=== PATIENT | female | born 1960 | race Caucasian/White ===

== ENCOUNTER 2017-01-25 14:35 | Emergency (ER) | payer BC, OTHER ==
[2017-01-25] MEDS ORDERED: Aspirin Low Dose CHEW TAB* 81 MG PO ONE (15:09)
--- NOTE | 2017-01-25 15:59 | RAD ---
Indication: Chest pain since 1300. Radiates to the RIGHT arm and shoulder blade. Comparison: No relevant prior exams available on the [facility] PACS for comparison. Technique: Upright AP 1520 hours Report: Minimal linear subsegmental atelectasis at the costophrenic angles. No consolidation concerning for pneumonia. Negative for focal pulmonary lesions. Negative for pleural effusion or pneumothorax. The heart, pulmonary vasculature, and mediastinal contours are unremarkable. Negative for free air beneath the diaphragm. IMPRESSION: No evidence for acute intrathoracic disease.
[2017-01-25 16:44] LABS: Hematocrit 47 % (35-47); Hemoglobin 15.8 g/dl (12.0-16.0); Mean Corpuscular HGB Conc 33 g/dl (31-36); Mean Corpuscular Hemoglobin 33 pg (27-31); Mean Corpuscular Volume 97 fL (80-97); Mean Platelet Volume 10 um3 (7.4-10.4); Red Blood Count 4.87 10^6/ul (4.0-5.4); Red Cell Distribution Width 14 % (10.5-15); White Blood Count 6.1 10^3/ul (3.5-10.8)
[2017-01-25 16:58] LABS: Albumin 4.1 g/dL (3.2-5.2); BUN/Creatinine Ratio 12.6 (8-20); EGFR African American 65.2 (>60); EGFR Non-African American 50.7 (>60); Globulin 3.1 g/dL (2-4); Total Bilirubin 0.4 mg/dL (0.2-1.0); Total Protein 7.2 g/dL (6.4-8.9)
[2017-01-25 19:27] LABS: Potassium 4.2 mmol/L (3.5-5.0)
[2017-01-25 20:29] VITALS: BP 103/67
--- NOTE | 2017-01-25 20:40 | ED ---
Deborah Brewer Seung-Jae, scribed for Leander Pierre MD on 01/25/17 at 1504 . HPI Chest Pain - HPI Summary HPI Summary: Pt is a 56 y/o F presenting to the ED with c/o CP. Pt states that approx 1 hour ago she had some tightness in her chest, and 20 minutes ago it became a "pain that radiates to the right arm". She characterizes the CP as an aching and sharp , stabbing pain. The Sx are aggravated with deep breathing and movement of chest , shoulder, and arm. Pt denies N/V. Pt notes chronic pedal edema in her ankles. - History of Current Complaint Chief Complaint: EDChestPainROMI Time Seen by Provider: 01/25/17 14:51 Hx Obtained From: Patient Onset/Duration: Started Hours Ago, Still Present Time of Onset: 14:00 Timing: Constant Initial Severity: Moderate Current Severity: Mild Pain Intensity: 3 Pain Scale Used: 0-10 Numeric Chest Pain Radiates: Yes Chest Pain Radiates To:: Arm - Right arm Character: Sharp/Stabbing, Other: - Aching Aggravating Factor(s): Movement - of shoulder, chest, and arm, Deep Breaths Alleviating Factor(s): Nothing Associated Signs and Symptoms: Positive: Palpitations - resolved. Negative: Nausea, Vomiting - Allergy/Home Medications Allergies/Adverse Reactions: Allergies Allergy/AdvReac Type Severity Reaction Status Date / Time No Known Allergies Allergy Verified 06/02/15 23:11 PMH/Surg Hx/FS Hx/Imm Hx Previously Healthy: Yes Musculoskeletal History: Denies: Hx Osteoporosis - Surgical History Surgery Procedure, Year, and Place: TONSILLECTOMY Infectious Disease History: Denies: Traveled Outside the [place] in Last 30 Days - Family History Known Family History: Positive: Cardiac Disease - Father at age 66 had MN, bypass graft - Social History Alcohol Use: Occasionally Alcohol Amount: WINE Substance Use Type: Reports: None Smoking Status (MU): Never Smoked Tobacco Review of Systems Positive: Palpitations - resolved, Chest Pain Negative: Vomiting, Nausea All Other Systems Reviewed And Are Negative: Yes Physical Exam Triage Information Reviewed: Yes Vital Signs On Initial Exam: Initial Vitals Temp Pulse Resp BP Pulse Ox 97.8 F 82 16 111/71 97 01/25/17 14:35 01/25/17 14:35 01/25/17 14:35 01/25/17 14:35 01/25/17 14:35 Vital Signs Reviewed: Yes Appearance: Positive: Well-Appearing, No Pain Distress Skin: Positive: Warm, Skin Color Reflects Adequate Perfusion, Dry Head/Face: Positive: Normal Head/Face Inspection Eyes: Positive: Normal ENT: Positive: Normal ENT inspection Neck: Positive: Supple, Nontender Respiratory/Lung Sounds: Positive: Clear to Auscultation, Breath Sounds Present Cardiovascular: Positive: RRR Abdomen Description: Positive: Nontender, Soft Bowel Sounds: Positive: Present Musculoskeletal: Positive: Edema Left - left ankle, Edema Right - right ankle Neurological: Positive: Normal Psychiatric: Positive: Normal Diagnostics - Vital Signs Vital Signs Temp Pulse Resp BP Pulse Ox 01/25/17 14:35 97.8 F 82 16 111/71 97 - Laboratory Lab Results: Lab Results 01/25/17 01/25/17 01/25/17 Range/Units 16:35 16:35 16:35 WBC 6.1 (3.5-10.8) 10^3/ul RBC 4.87 (4.0-5.4) 10^6/ul Hgb 15.8 (12.0-16.0) g/dl Hct 47 (35-47) % MCV 97 (80-97) fL MCH 33 H (27-31) pg MCHC 33 (31-36) g/dl RDW 14 (10.5-15) % Plt Count 269 (150-450) 10^3/ul MPV 10 (7.4-10.4) um3 Neut % (Auto) 66.0 (38-83) % Lymph % (Auto) 21.3 L (25-47) % Reagan % (Auto) 9.2 H (1-9) % Eos % (Auto) 2.5 (0-6) % Baso % (Auto) 1.0 (0-2) % Absolute Neuts (auto) 4.0 (1.5-7.7) 10^3/ul Absolute Lymphs (auto) 1.3 (1.0-4.8) 10^3/ul Absolute Monos (auto) 0.6 (0-0.8) 10^3/ul Absolute Eos (auto) 0.2 (0-0.6) 10^3/ul Absolute Basos (auto) 0.1 (0-0.2) 10^3/ul Absolute Nucleated RBC 0 10^3/ul Nucleated RBC % 0.1 D-Dimer, Quantitative < 200 (Less Than 230) ng/mL Sodium 137 (133-145) mmol/L Potassium 4.2 (3.5-5.0) mmol/L Chloride 106 (101-111) mmol/L Carbon Dioxide 28 (22-32) mmol/L Anion Gap 3 (2-11) mmol/L BUN 14 (6-24) mg/dL Creatinine 1.11 H (0.51-0.95) mg/dL Est GFR ( Amer) 65.2 (>60) Est GFR (Non-Af Amer) 50.7 (>60) BUN/Creatinine Ratio 12.6 (8-20) Glucose 97 (70-100) mg/dL Lactic Acid (0.5-2.0) mmol/L Calcium 9.0 (8.6-10.3) mg/dL Total Bilirubin 0.40 (0.2-1.0) mg/dL AST 19 (13-39) U/L ALT 18 (7-52) U/L Alkaline Phosphatase 59 (34-104) U/L Troponin I 0.00 (<0.04) ng/mL Total Protein 7.2 (6.4-8.9) g/dL Albumin 4.1 (3.2-5.2) g/dL Globulin 3.1 (2-4) g/dL Albumin/Globulin Ratio 1.3 (1-3) 01/25/17 01/25/17 Range/Units 19:18 19:18 WBC (3.5-10.8) 10^3/ul RBC (4.0-5.4) 10^6/ul Hgb (12.0-16.0) g/dl Hct (35-47) % MCV (80-97) fL MCH (27-31) pg MCHC (31-36) g/dl RDW (10.5-15) % Plt Count (150-450) 10^3/ul MPV (7.4-10.4) um3 Neut % (Auto) (38-83) % Lymph % (Auto) (25-47) % Reagan % (Auto) (1-9) % Eos % (Auto) (0-6) % Baso % (Auto) (0-2) % Absolute Neuts (auto) (1.5-7.7) 10^3/ul Absolute Lymphs (auto) (1.0-4.8) 10^3/ul Absolute Monos (auto) (0-0.8) 10^3/ul Absolute Eos (auto) (0-0.6) 10^3/ul Absolute Basos (auto) (0-0.2) 10^3/ul Absolute Nucleated RBC 10^3/ul Nucleated RBC % D-Dimer, Quantitative (Less Than 230) ng/mL Sodium (133-145) mmol/L Potassium (3.5-5.0) mmol/L Chloride (101-111) mmol/L Carbon Dioxide (22-32) mmol/L Anion Gap (2-11) mmol/L BUN (6-24) mg/dL Creatinine (0.51-0.95) mg/dL Est GFR ( Amer) (>60) Est GFR (Non-Af Amer) (>60) BUN/Creatinine Ratio (8-20) Glucose (70-100) mg/dL Lactic Acid 1.4 (0.5-2.0) mmol/L Calcium (8.6-10.3) mg/dL Total Bilirubin (0.2-1.0) mg/dL AST (13-39) U/L ALT (7-52) U/L Alkaline Phosphatase (34-104) U/L Troponin I 0.00 (<0.04) ng/mL Total Protein (6.4-8.9) g/dL Albumin (3.2-5.2) g/dL Globulin (2-4) g/dL Albumin/Globulin Ratio (1-3) Result Diagrams: 01/25/17 16:35 01/25/17 16:35 Lab Statement: Any lab studies that have been ordered have been reviewed, and results considered in the medical decision making process. - Radiology Chest XR Xray Interpretation: No Acute Changes - Impression: No evidence for acute intrathoracic disease. Radiology Interpretation Completed By: Radiologist - EKG 14:47 Cardiac Rate: NL - 69 bpm EKG Rhythm: Sinus Rhythm ST Segment: Non-Specific - Anterior septal flipped T waves. EKG Comparison: No Significant Change - Consistent with one in 07/06/10. 19:30 Cardiac Rate: NL - 75 bpm EKG Rhythm: Sinus Rhythm ST Segment: Non-Specific - Anterior septal flipped T waves. Re-Evaluation - Re-Evaluation First Eval Re-Evaluation Time: 17:37 Change: Improved Comment: Pt is doing fine Second Eval Re-Evaluation Time: 19:52 Change: Improved Chest Pain Course/Dx - Course Course Of Treatment: Ms. James presented with an atypical CP that was reproducible by movement and palpation. She was W/U'd with labs including a d- dimer and delayed troponin testing, CXR and two ecgs which were unchanged from the past. Her EDACS score is 3. I think this is a musculoskeletal pain. - Diagnoses Provider Diagnoses: Chest pain Discharge - Discharge Plan Condition: Stable Disposition: HOME Patient Education Materials: Chest Pain (ED) Referrals: Buffy Gray MD [Primary Care Provider] - 3 Days The documentation as recorded by the Deborah remy Seung-Jae accurately reflects the service I personally performed and the decisions made by me, Leander Pierre MD.
== END 2017-01-25 20:27 | disposition home or self-care (01) ==
LOC: ED 14:35
DX: R07.9 Chest pain, unspecified (principal); R00.2 Palpitations
CPT/HCPCS: 36415; 71010; 80053; 83605; 84484; 85025; 85379; 93005; 99283; A9270-GY

== ENCOUNTER 2018-04-12 17:30 | Emergency (ER) | payer OTHER ==
[2018-04-12 19:39] VITALS: BP 97/64
[2018-04-12] MEDS ORDERED: Acetaminophen TAB* 325 MG PO ONE (19:48)
--- NOTE | 2018-04-12 20:07 | ED ---
HPI Chest Pain - HPI Summary HPI Summary: This pt is a 57 y.o female presenting to the [facility] with a chief complaint reported as right sided chest pain. The pt previously on Tuesday (04/08/18) reportedly tripped over a suitcase (in the middle of the night) and fell on the right side of the ribs as per triage report. Today at 04/12/18 on 929, the pt heard a pop on the right side of the ribs while exercising and laying down. Other symptoms reported to be pumping feeling to mid chest area." Pt also states she bumped her ankle upon falling down and currently has difficulty in breathing. She states there is continuous pain on the right side of the body that radiates to her breasts and the onset was stated to be 929. No medication was taken for the pain. Symptoms aggravated by inspiration. Symptoms alleviated by nothing. Pt denies diaphoresis and radiations. - History of Current Complaint Chief Complaint: EDChestWallPain Time Seen by Provider: 04/12/18 19:25 Hx Obtained From: Patient Onset/Duration: Started Hours Ago - 929 Timing: Constant Current Severity: Mild Pain Intensity: 2 Pain Scale Used: 0-10 Numeric Chest Pain Location: Right Lateral Chest Pain Radiates: Yes Chest Pain Radiates To:: Other - Breasts Aggravating Factor(s): Other: - Inspiration Alleviating Factor(s): Nothing Associated Signs and Symptoms: Positive: Chest Pain - right side, Other: - Difficulty breathing - Allergy/Home Medications Allergies/Adverse Reactions: Allergies Allergy/AdvReac Type Severity Reaction Status Date / Time No Known Allergies Allergy Verified 06/02/15 23:11 Home Medications: Home Medications NK [No Home Medications Reported] 04/12/18 [History Confirmed 04/12/18] PMH/Surg Hx/FS Hx/Imm Hx Musculoskeletal History: Reports: Hx Osteoporosis Denies: Hx Rheumatoid Arthritis Sensory History: Denies: Hx Deafness, Hx Hearing Aid Opthamlomology History: Denies: Hx Legally Blind - Surgical History Surgery Procedure, Year, and Place: TONSILLECTOMY Infectious Disease History: No Infectious Disease History: Denies: Traveled Outside the [place] in Last 30 Days - Family History Known Family History: Positive: Cardiac Disease - Father at age 66 had PR, bypass graft Family History: Other FHx reviewed and noncontributory - Social History Alcohol Use: Occasionally Alcohol Amount: WINE Substance Use Type: Reports: None Smoking Status (MU): Never Smoked Tobacco Review of Systems Constitutional: Other - Negative diaphoresis Negative: Skin Diaphoresis Eyes: Negative ENT: Negative Positive: Chest Pain - Right sided (right lateral) Respiratory: Other - Difficulty breathing Gastrointestinal: Negative Genitourinary: Negative Musculoskeletal: Other - right sided chest pain radiates to the breasts Skin: Negative Neurological: Negative Psychological: Normal All Other Systems Reviewed And Are Negative: Yes Physical Exam - Summary Physical Exam Summary: VITAL SIGNS: Reviewed. GENERAL: Patient is a well-developed and nourished (MALE OR FEMALE) who is lying comfortable in the stretcher. Patient is not in any acute respiratory distress. HEAD AND FACE: No signs of trauma. No ecchymosis, hematomas or skull depressions. No sinus tenderness. EYES: PERRLA, EOMI x 2, No injected conjunctiva, no nystagmus. EARS: Hearing grossly intact. Ear canals and tympanic membranes are within normal limits. MOUTH: Oropharynx within normal limits. NECK: Supple, trachea is midline, no adenopathy, no JVD, no carotid bruit, no c- spine tenderness, neck with full ROM. CHEST: Symmetric, no tenderness at palpation LUNGS: Clear to auscultation bilaterally. No wheezing or crackles. CVS: Regular rate and rhythm, S1 and S2 present, no murmurs or gallops appreciated. ABDOMEN: Soft, non-tender. No signs of distention. No rebound no guarding, and no masses palpated. Bowel sounds are normal. EXTREMITIES: FROM in all major joints, no edema, no cyanosis or clubbing. NEURO: Alert and oriented x 3. No acute neurological deficits. Speech is normal and follows commands. SKIN: Dry and warm Triage Information Reviewed: Yes Vital Signs On Initial Exam: Initial Vitals Temp Pulse Resp BP Pulse Ox 97.2 F 84 17 116/68 97 04/12/18 18:01 04/12/18 18:01 04/12/18 18:01 04/12/18 18:01 04/12/18 18:01 Vital Signs Reviewed: Yes Diagnostics - Vital Signs Vital Signs Temp Pulse Resp BP Pulse Ox 04/12/18 19:30 79 19 97/64 97 04/12/18 18:01 97.2 F 84 17 116/68 97 - Laboratory Lab Statement: Any lab studies that have been ordered have been reviewed, and results considered in the medical decision making process. - Radiology Chest X-ray Radiology Interpretation Completed By: ED Physician - The ED Physician has reviewed this radiology report pending official report. Chest X-ray reveals no acute processes. - EKG 1808 EKG Rhythm: Sinus Rhythm - 75 bpm EKG Interpretation: T wave inversion at V1 to V3 EKG Comparison: No Significant Change - From 01/25/17 Chest Pain Course/Dx - Course Course Of Treatment: The pt has a chief complaint of right sided chest pain (by her ribs). The pain radiates to her breasts and she reports difficulty breathing. She received an EKG at 1808 and chest X-ray. The pt will be discharged home with a dx of Chest wall pain. - Diagnoses Provider Diagnoses: Chest wall pain Discharge - Sign-Out/Discharge Documenting (check all that apply): Patient Departure - Discharge home - Discharge Plan Condition: Stable Disposition: HOME Patient Education Materials: Chest Pain (ED) Referrals: Buffy Gray MD [Primary Care Provider] - Additional Instructions: Take Tylenol and Motrin as necessary. RETURN TO THE EMERGENCY DEPARTMENT FOR CHANGING OR WORSENING SYMPTOMS. FOLLOW UP WITH PCP IN 1-2 DAYS. - Attestation Statements Document Initiated by Scribe: Yes Documenting Scribe: Kenroy Valenzuela Provider For Whom Scribe is Documenting (Include Credential): Dr. Michael Taylor Scribe Attestation: Kenroy Brewer, scribed for Dr. Michael Taylor on 04/12/18 at 2033.
--- NOTE | 2018-04-13 07:08 | RAD ---
INDICATION: Chest pain. COMPARISON: There are no relevant prior studies available for comparison. TECHNIQUE: Inspiratory and expiratory Dual-energy PA and lateral views of the chest were obtained. FINDINGS: The heart is within normal limits in size. Mediastinal and hilar contours appear within normal limits. The lungs are clear. No pleural effusion or pneumothorax is seen. IMPRESSION: NO EVIDENCE FOR ACTIVE CARDIOPULMONARY DISEASE. R0
== END 2018-04-12 20:43 | disposition home or self-care (01) ==
LOC: ED 17:30
DX: R07.89 Other chest pain (principal); Z91.81 History of falling
CPT/HCPCS: 71046; 93005; 99282; A9270-GY